=== PATIENT | male | born 1985 | race African-American/Black ===

== ENCOUNTER 2021-06-17 19:38 | Inpatient (IN) | payer MEDICAID, OTHER ==
[~2021-06-17] VITALS: Ht 167.6 cm; Wt 55.9 kg
[2021-06-17 20:28] LABS: Basophils # (auto) 0 10 ^3/uL (0-0.2); Basophils % (auto) 0.7 % (0.0-2.0); Eosinophils # (auto) 0.1 10 ^3/uL (0-0.8); Eosinophils % (auto) 0.9 % (0.0-7.0); Hematocrit 43.8 % (41.0-53.0); Hemoglobin 15.3 g/dL (13.5-17.5); Lymphocytes # (auto) 3.4 10 ^3/uL (0.4-5.4); Lymphocytes % (auto) 54.5 % (10.0-50.0); Mean Corpuscular Hemoglobin 31.4 pg (28.0-32.0); Mean Corpuscular Hgb Conc. 34.9 g/dL (32.0-36.0); Monocytes # (auto) 0.4 10 ^3/uL (0-1.3); Monocytes % (auto) 6.8 % (0.0-12.0); Neutrophils # (auto) 2.3 10 ^3/uL (1.6-8.6); Neutrophils % (auto) 37.1 % (37.0-80.0); Nucleated Red Blood Cells % 0.2 %; Red Blood Cells 4.86 10^6/uL (4.5-5.90); Red Cell Distribution Width 13.3 % (11.8-14.3); White Blood Cell 6.2 10^3/uL (4.4-10.8)
[2021-06-17 20:32] LABS: Albumin 3.8 g/dL (3.4-5.0); Calcium 9.4 mg/dL (8.5-10.1); Potassium 3.9 mmol/L (3.5-5.1)
[2021-06-17 20:35] LABS: BUN/Creatinine Ratio 8.5
[2021-06-17 20:40] LABS: Bilirubin, Total 0.2 mg/dL (0.2-1.0); Total Protein 7.1 g/dL (6.4-8.2)
[2021-06-17] MEDS ORDERED: KETOROLAC TROMETH 30 MG/ML 1ML VIAL IV ONE (22:00)
[2021-06-17 22:05] LABS: Urine Bacteria NONE SEEN /hpf (None Seen); Urine Blood Negative /uL (Negative); Urine Specific Gravity 1.009 (1.001-1.035); Urine WBC 1 /hpf (0 - 3)
[2021-06-18] MEDS ORDERED: NITROGLYCERIN 0.4 MG SL TAB SL PRN (03:00)
[2021-06-18] MEDS ORDERED: MORPHINE SULFATE INJECTION 2 MG/ML SYRG IV PRN (03:00)
[2021-06-18] MEDS ORDERED: HYDROcodone-ACET 5/325MG TAB PO PRN (03:00)
[2021-06-18 05:00] VITALS: BP 108/68
[2021-06-18 05:29] VITALS: BP 108/68
[2021-06-18] MEDS ORDERED: ALBUAER3 IN (05:47)
[2021-06-18] MEDS ORDERED: GABA300C10 PO (05:47)
[2021-06-18 09:00] VITALS: BP 97/52
[2021-06-18 13:00] VITALS: BP 96/54
[2021-06-18] MEDS: KETOROLAC TROMETH 30 MG/ML 1ML VIAL IV PRN ×2 (14:34→21:02)
[2021-06-18] MEDS: GABAPENTIN 300 MG CAP PO SCH ×2 (14:34→21:36)
[2021-06-18 17:00] VITALS: BP 98/53
[2021-06-18] MEDS: DOCUSATE SOD 100 MG CAP PO PRN (21:36)
[2021-06-18 22:00] VITALS: BP 117/39
[2021-06-19 05:00] VITALS: BP 105/64
[2021-06-19] MEDS: KETOROLAC TROMETH 30 MG/ML 1ML VIAL IV PRN ×4 (05:22→23:25)
[2021-06-19] MEDS: GABAPENTIN 300 MG CAP PO SCH ×3 (05:23→21:09)
[2021-06-19 06:02] LABS: Basophils # (auto) 0 10 ^3/uL (0-0.2); Basophils % (auto) 0.5 % (0.0-2.0); Eosinophils # (auto) 0.1 10 ^3/uL (0-0.8); Eosinophils % (auto) 1.3 % (0.0-7.0); Hematocrit 45.4 % (41.0-53.0); Hemoglobin 15.9 g/dL (13.5-17.5); Lymphocytes # (auto) 3.5 10 ^3/uL (0.4-5.4); Mean Corpuscular Hgb Conc. 35.1 g/dL (32.0-36.0); Mean Corpuscular Volume 91.3 fL (80.0-100.0); Monocytes # (auto) 0.6 10 ^3/uL (0-1.3); Monocytes % (auto) 10.3 % (0.0-12.0); Nucleated Red Blood Cells % 0.2 %; Red Blood Cells 4.97 10^6/uL (4.5-5.90); Red Cell Distribution Width 13.1 % (11.8-14.3); White Blood Cell 6.2 10^3/uL (4.4-10.8)
[2021-06-19 06:13] LABS: Lymphocytes % (auto) 55.9 % (10.0-50.0)
[2021-06-19 09:00] VITALS: BP 103/63
[2021-06-19 09:05] LABS: Albumin 3.4 g/dL (3.4-5.0); Calcium 9.1 mg/dL (8.5-10.1); Magnesium 2.3 mg/dL (1.6-2.6)
[2021-06-19 09:09] LABS: BUN/Creatinine Ratio 11.8; Bilirubin, Total 0.5 mg/dL (0.2-1.0); Total Protein 6.8 g/dL (6.4-8.2)
[2021-06-19 13:00] VITALS: BP 103/52
[2021-06-19 16:57] VITALS: BP 113/67
[2021-06-19 22:00] VITALS: BP 131/77
[2021-06-20 05:00] VITALS: BP 112/67
[2021-06-20] MEDS: GABAPENTIN 300 MG CAP PO SCH ×3 (05:18→21:38)
[2021-06-20] MEDS: KETOROLAC TROMETH 30 MG/ML 1ML VIAL IV PRN ×3 (05:18→22:59)
[2021-06-20 09:00] VITALS: BP 122/67
[2021-06-20 13:00] VITALS: BP 126/45
[2021-06-20 16:32] VITALS: BP 117/48
[2021-06-20] MEDS ORDERED: MORPHINE SULFATE INJECTION 2 MG/ML SYRG IV ONE (18:00)
[2021-06-20] MEDS: LORazepam 2MG/ML-1ML VIAL IV PRN (21:38)
[2021-06-20 22:00] VITALS: BP 135/82
[2021-06-20 22:32] LABS: Basophils # (auto) 0 10 ^3/uL (0-0.2); Basophils % (auto) 0.6 % (0.0-2.0); Eosinophils # (auto) 0.1 10 ^3/uL (0-0.8); Eosinophils % (auto) 1.1 % (0.0-7.0); Hematocrit 40.1 % (41.0-53.0); Lymphocytes # (auto) 2.8 10 ^3/uL (0.4-5.4); Lymphocytes % (auto) 47.1 % (10.0-50.0); Mean Corpuscular Hemoglobin 31.5 pg (28.0-32.0); Mean Corpuscular Hgb Conc. 34.9 g/dL (32.0-36.0); Mean Corpuscular Volume 90.5 fL (80.0-100.0); Monocytes # (auto) 0.5 10 ^3/uL (0-1.3); Monocytes % (auto) 9.1 % (0.0-12.0); Neutrophils # (auto) 2.5 10 ^3/uL (1.6-8.6); Neutrophils % (auto) 42.1 % (37.0-80.0); Nucleated Red Blood Cells % 0.2 %; Red Blood Cells 4.43 10^6/uL (4.5-5.90); Red Cell Distribution Width 13.1 % (11.8-14.3)
[2021-06-20 22:49] LABS: BUN/Creatinine Ratio 13.9; Calcium 8.8 mg/dL (8.5-10.1); Potassium 4.6 mmol/L (3.5-5.1)
[2021-06-21] MEDS: LORazepam 2MG/ML-1ML VIAL IV PRN (00:39)
[2021-06-21] MEDS ORDERED: HALOPERIDOL LACTATE 5 MG/ML INJ VIAL ONE (01:13)
[2021-06-21] MEDS: HALOPERIDOL LACTATE 5 MG/ML INJ VIAL IM PRN (01:48)
[2021-06-21 02:00] VITALS: BP 139/63
[2021-06-21] MEDS: GABAPENTIN 300 MG CAP PO SCH ×3 (07:00→21:34)
[2021-06-21 14:36] VITALS: BP 98/58
[2021-06-21] MEDS: KETOROLAC TROMETH 30 MG/ML 1ML VIAL IV PRN ×2 (14:50→21:48)
[2021-06-21 16:56] VITALS: BP 101/67
[2021-06-21 22:00] VITALS: BP 109/68
[2021-06-21] MEDS ORDERED: LORazepam 2MG/ML-1ML VIAL IV PRN (22:30)
[2021-06-22] MEDS: KETOROLAC TROMETH 30 MG/ML 1ML VIAL IV PRN ×2 (03:45→18:51)
[2021-06-22] MEDS: LORazepam 2MG/ML-1ML VIAL IV PRN ×2 (04:36→06:37)
[2021-06-22 05:00] VITALS: BP 119/78
[2021-06-22] MEDS: GABAPENTIN 300 MG CAP PO SCH ×3 (06:25→21:49)
[2021-06-22 09:00] VITALS: BP 118/73
[2021-06-22 13:00] VITALS: BP 114/67
[2021-06-22] MEDS: HALOPERIDOL LACTATE 5 MG/ML INJ VIAL IM PRN (13:22)
[2021-06-22 17:00] VITALS: BP 103/53
[2021-06-22 22:00] VITALS: BP 106/51
[2021-06-23 05:00] VITALS: BP 103/51
[2021-06-23] MEDS: LORazepam 2MG/ML-1ML VIAL IV PRN ×2 (05:05→20:41)
[2021-06-23] MEDS ORDERED: LORazepam 2MG/ML-1ML VIAL IV ONE (05:45)
[2021-06-23] MEDS: GABAPENTIN 300 MG CAP PO SCH ×3 (06:21→21:34)
[2021-06-23 09:00] VITALS: BP 98/74
[2021-06-23] MEDS: HALOPERIDOL LACTATE 5 MG/ML INJ VIAL IM PRN (12:14)
[2021-06-23 13:00] VITALS: BP 114/66
[2021-06-23 17:00] VITALS: BP 115/68
[2021-06-23] MEDS ORDERED: KETOROLAC TROMETH 30 MG/ML 1ML VIAL IV PRN (21:00)
[2021-06-23 22:02] VITALS: BP 118/70
[2021-06-24 04:55] VITALS: BP 80/43
[2021-06-24 05:30] VITALS: BP 102/54
[2021-06-24] MEDS: GABAPENTIN 300 MG CAP PO SCH ×3 (06:38→21:42)
[2021-06-24 08:57] VITALS: BP 146/61
[2021-06-24 13:01] VITALS: BP 118/60
[2021-06-24 17:00] VITALS: BP 115/75
[2021-06-24] MEDS: LORazepam 2MG/ML-1ML VIAL IV PRN ×2 (17:04→23:44)
[2021-06-24 22:00] VITALS: BP 133/77
[2021-06-24] MEDS: DOCUSATE SOD 100 MG CAP PO PRN (23:15)
[2021-06-24] MEDS ORDERED: diphenhdrAMINE HCL 25 MG CAP PO ONE (23:15)
[2021-06-25] MEDS: GABAPENTIN 300 MG CAP PO SCH (05:58)
[2021-06-25 08:00] VITALS: BP 124/93
[2021-06-25 09:00] VITALS: BP 124/93
[2021-06-25] MEDS ORDERED: LEVE500T32 PO (10:08)
[2021-06-25] MEDS ORDERED: GABA300C10 PO (10:08)
[2021-06-25 11:24] VITALS: BP 124/93
== END 2021-06-25 13:03 | disposition home or self-care (01) | DRG 203 ==
LOC: EDBD 19:38 → ER 19:43 → TELE 06-18 02:51 → TELE-EAST 06-18 04:46 → TELE-CENTR 06-19 20:44
PROVIDERS: ADMIT Internal Medicine; ATTEND Family Medicine
PROC: 4B02XSZ Measurement of Cardiac Pacemaker, External Approach (ICD-10-PCS; principal; 2021-06-25)
DX: R07.9 Chest pain, unspecified (principal); G40.409 Other generalized epilepsy and epileptic syndromes, not intractable, without status epilepticus; I49.5 Sick sinus syndrome; R55 Syncope and collapse; F31.9 Bipolar disorder, unspecified; F12.10 Cannabis abuse, uncomplicated; F41.9 Anxiety disorder, unspecified; Z20.822 Contact with and (suspected) exposure to COVID-19; F17.200 Nicotine dependence, unspecified, uncomplicated; G62.9 Polyneuropathy, unspecified; Z82.5 Family history of asthma and other chronic lower respiratory diseases; Z71.51 Drug abuse counseling and surveillance of drug abuser; Z71.6 Tobacco abuse counseling; Z95.0 Presence of cardiac pacemaker; Z82.49 Family history of ischemic heart disease and other diseases of the circulatory system; Z79.899 Other long term (current) drug therapy; Z88.1 Allergy status to other antibiotic agents; Z88.8 Allergy status to other drugs, medicaments and biological substances
CPT/HCPCS: 36415; 70450; 70551; 71045; 72100; 73060; 80048; 80053; 80061; 81001; 82542; 83735; 83880; 84484; 85025; 93005; 93306; 93886; 95819; 96374; G0378; J1885; J7060

== ENCOUNTER 2021-11-03 22:48 | Inpatient (IN) | payer MEDICAID ==
[~2021-11-03] VITALS: Ht 165.1 cm; Wt 64.5 kg
[~2021-11-03 22:48] MED LIST: ALBUAER3 IN; GABA300C10 PO; LEVE500T32 PO
[2021-11-04] MEDS ORDERED: LORazepam 2MG/ML-1ML VIAL IV ONE (00:45)
[2021-11-04 01:17] LABS: Basophils # (auto) 0.1 10 ^3/uL (0-0.2); Eosinophils # (auto) 0.1 10 ^3/uL (0-0.8); Eosinophils % (auto) 0.6 % (0.0-7.0); Hematocrit 40.9 % (41.0-53.0); Hemoglobin 13.8 g/dL (13.5-17.5); Lymphocytes # (auto) 3.8 10 ^3/uL (0.4-5.4); Lymphocytes % (auto) 35.4 % (10.0-50.0); Mean Corpuscular Hemoglobin 31.1 pg (28.0-32.0); Mean Corpuscular Hgb Conc. 33.7 g/dL (32.0-36.0); Mean Corpuscular Volume 92.3 fL (80.0-100.0); Monocytes # (auto) 1.1 10 ^3/uL (0-1.3); Monocytes % (auto) 10.7 % (0.0-12.0); Neutrophils # (auto) 5.6 10 ^3/uL (1.6-8.6); Neutrophils % (auto) 52.3 % (37.0-80.0); Nucleated Red Blood Cells % 0.1 %; Red Blood Cells 4.43 10^6/uL (4.5-5.90); Red Cell Distribution Width 13.8 % (11.8-14.3); White Blood Cell 10.7 10^3/uL (4.4-10.8)
[2021-11-04 01:30] LABS: Albumin 3.3 g/dL (3.4-5.0); BUN/Creatinine Ratio 8.3; Calcium 8.5 mg/dL (8.5-10.1); Potassium 3.6 mmol/L (3.5-5.1)
[2021-11-04 01:33] LABS: Bilirubin, Total 0.2 mg/dL (0.2-1.0); Total Protein 6.7 g/dL (6.4-8.2)
[2021-11-04] MEDS ORDERED: SODIUM CHLORIDE 0.9% 500 ML IV ONE (03:30)
[2021-11-04] MEDS ORDERED: diazePAM 5 MG TAB PO ONE (03:30)
[2021-11-04] MEDS ORDERED: levETIRAcetam 500 MG/5ML INJ IV ONE (04:49)
[2021-11-04] MEDS ORDERED: ONDANSETRON HCL 4 MG/2 ML VIAL IV PRN ×2 (05:15)
[2021-11-04] MEDS ORDERED: MORPHINE SULFATE INJ 2 MG/ml SYRG IV PRN (05:15)
[2021-11-04] MEDS ORDERED: NITROGLYCERIN 0.4 MG SL TAB SL PRN (05:15)
[2021-11-04] MEDS ORDERED: ACETAMINOPHEN 325 MG TAB PO PRN (05:15)
[2021-11-04] MEDS: GABAPENTIN 300 MG CAP PO SCH ×3 (06:00→21:58)
[2021-11-04] MEDS: PANTOPRAZOLE 40 MG TAB PO SCH (10:23)
[2021-11-04] MEDS: QUEtiapine FUMARATE 25 MG TAB PO SCH ×2 (10:24→21:58)
[2021-11-04] MEDS: MORPHINE SULFATE INJ 2 MG/ml SYRG IV PRN (21:01)
[2021-11-05] VITALS (9 sets, daily range): BP systolic 89–120; BP diastolic 44–76
[2021-11-05] MEDS: MORPHINE SULFATE INJ 2 MG/ml SYRG IV PRN ×4 (03:59→22:04)
[2021-11-05] MEDS: GABAPENTIN 300 MG CAP PO SCH ×3 (05:02→22:25)
[2021-11-05 05:59] LABS: Basophils # (auto) 0 10 ^3/uL (0-0.2); Basophils % (auto) 0.4 % (0.0-2.0); Eosinophils # (auto) 0.1 10 ^3/uL (0-0.8); Eosinophils % (auto) 1.8 % (0.0-7.0); Hematocrit 39.5 % (41.0-53.0); Hemoglobin 13.2 g/dL (13.5-17.5); Lymphocytes # (auto) 3.1 10 ^3/uL (0.4-5.4); Lymphocytes % (auto) 38.5 % (10.0-50.0); Mean Corpuscular Hemoglobin 31.1 pg (28.0-32.0); Mean Corpuscular Hgb Conc. 33.4 g/dL (32.0-36.0); Mean Corpuscular Volume 93.1 fL (80.0-100.0); Monocytes # (auto) 0.6 10 ^3/uL (0-1.3); Monocytes % (auto) 7.9 % (0.0-12.0); Neutrophils # (auto) 4.1 10 ^3/uL (1.6-8.6); Neutrophils % (auto) 51.4 % (37.0-80.0); Red Blood Cells 4.24 10^6/uL (4.5-5.90); Red Cell Distribution Width 13.9 % (11.8-14.3); White Blood Cell 7.9 10^3/uL (4.4-10.8)
[2021-11-05 06:12] LABS: Albumin 2.8 g/dL (3.4-5.0); Potassium 3.8 mmol/L (3.5-5.1)
[2021-11-05 06:15] LABS: BUN/Creatinine Ratio 7.7; Bilirubin, Total 0.3 mg/dL (0.2-1.0); Total Protein 6.1 g/dL (6.4-8.2)
[2021-11-05] MEDS: QUEtiapine FUMARATE 25 MG TAB PO SCH ×2 (09:46→22:25)
[2021-11-05] MEDS: PANTOPRAZOLE 40 MG TAB PO SCH (09:47)
[2021-11-05] MEDS ORDERED: MIDAZOLAM HCL 2MG/2ML 2ml VIAL (1mg/ml) IV ONE (10:30)
[2021-11-05] MEDS ORDERED: MIDAZOLAM HCL 5 MG/ML-1ML VIAL ONE ×2 (10:32→11:14)
[2021-11-05] MEDS ORDERED: KETOROLAC TROMETH 30 MG/ML 1ML VIAL ONE (21:04)
[2021-11-05] MEDS ORDERED: KETOROLAC TROMETH 30 MG/ML 1ML VIAL IV ONE (21:15)
[2021-11-05] MEDS ORDERED: MIDAZOLAM HCL 2MG/2ML 2ml VIAL (1mg/ml) ONE (23:12)
[2021-11-05] MEDS: MIDAZOLAM HCL 2MG/2ML 2ml VIAL (1mg/ml) IV PRN (23:12)
[2021-11-05] MEDS ORDERED: PHENobarbital SODIUM INJ 600 MG in SODIUM CHL 0.9% 100 ML IV ONE (23:30)
[2021-11-05] MEDS ORDERED: PHENobarbital SODIUM 130 MG/ML VL ONE (23:49)
[2021-11-06] VITALS (11 sets, daily range): BP systolic 74–110; BP diastolic 30–66
[2021-11-06] MEDS: QUEtiapine FUMARATE 25 MG TAB PO SCH ×2 (10:08→21:03)
[2021-11-06] MEDS: PANTOPRAZOLE 40 MG TAB PO SCH (10:08)
[2021-11-06] MEDS: MORPHINE SULFATE INJ 2 MG/ml SYRG IV PRN ×2 (12:40→19:33)
[2021-11-06] MEDS: GABAPENTIN 300 MG CAP PO SCH ×2 (13:20→21:03)
[2021-11-06] MEDS: MIDAZOLAM HCL 2MG/2ML 2ml VIAL (1mg/ml) IV PRN ×2 (18:40→22:43)
[2021-11-06] MEDS ORDERED: TRAZ50TA2 PO (23:45)
[2021-11-07] MEDS: MORPHINE SULFATE INJ 2 MG/ml SYRG IV PRN (02:43)
[2021-11-07] MEDS: GABAPENTIN 300 MG CAP PO SCH (06:00)
[2021-11-07] MEDS ORDERED: MORPHINE SULFATE INJ 2 MG/ml SYRG IV PRN (07:30)
[2021-11-07] MEDS: QUEtiapine FUMARATE 25 MG TAB PO SCH (09:39)
[2021-11-07] MEDS: PANTOPRAZOLE 40 MG TAB PO SCH (09:39)
[2021-11-07] MEDS ORDERED: KEP500T PO (09:44)
[2021-11-07 09:48] VITALS: BP 102/68
== END 2021-11-07 10:12 | disposition home or self-care (01) | DRG 53 ==
LOC: EDBD 22:48 → ER 22:48 → TELE 11-04 05:16 → TELE-WESTW 11-04 22:22 → DOU IN ICU 11-05 11:53
PROVIDERS: ADMIT Nurse Practitioner; ATTEND Internal Medicine Pulmonary Disease
DX: G40.901 Epilepsy, unspecified, not intractable, with status epilepticus (principal); F20.9 Schizophrenia, unspecified; R74.01 Elevation of levels of liver transaminase levels; Z20.822 Contact with and (suspected) exposure to COVID-19; F31.9 Bipolar disorder, unspecified; Z82.5 Family history of asthma and other chronic lower respiratory diseases; Z88.8 Allergy status to other drugs, medicaments and biological substances; Z83.3 Family history of diabetes mellitus; Z91.14 Patient's other noncompliance with medication regimen; Z95.0 Presence of cardiac pacemaker
CPT/HCPCS: 36415; 80053; 84484; 85025; 93005; 96365; 96366; 96375; G0378; J1885; J2250; J2405; J7060